=== PATIENT | male | born 1950 | race Caucasian/White ===

== ENCOUNTER → 2018-06-01 | Outpatient (CLI) | payer MEDICARE, OTHER ==
[2018-06-01 21:04] LABS: Cat Epith & Dander IgE <0.10 kU/L; Cockroach IgE <0.10 kU/L; Dog Dander IgE <0.10 kU/L
[2018-06-01 21:07] LABS: Alternaria alternata IgE <0.10 kU/L; Maple (Box Elder) IgE <0.10 kU/L
[2018-06-01 21:08] LABS: Birch IgE <0.10 kU/L; Oak IgE <0.10 kU/L
[2018-06-01 21:09] LABS: Elm IgE <0.10 kU/L; Ragweed,Common IgE <0.10 kU/L
[2018-06-01 21:10] LABS: Dermato. farinae IgE <0.10 kU/L; Red Top (Bentgrass) IgE <0.10 kU/L
[2018-06-01 21:14] LABS: Immunoglobulin E 5.69 IU/mL (0.00-114.00)
== END | disposition home or self-care (01) ==
LOC: LABWHC1 12:27
PROVIDERS: ATTEND Internal Medicine Critical Care Medicine
DX: J45.909 Unspecified asthma, uncomplicated (principal)
CPT/HCPCS: 36415; 82785; 86003

== ENCOUNTER → 2018-07-12 | Outpatient (CLI) | payer MEDICARE, OTHER ==
[2018-07-12 08:50] LABS: Blood Urea Nitrogen 20 mg/dL (9-20)
--- NOTE | 2018-07-12 10:01 | CT ---
EXAMINATION TYPE: CT chest w con DATE OF EXAM: 07/12/2018 COMPARISON: NONE HISTORY: Shortness of breath CT DLP: 490 mGycm. Automated Exposure Control for Dose Reduction was Utilized. TECHNIQUE: CT scan of the thorax is performed following with IV Contrast, patient injected with 100 ml mL of Isovue 300. FINDINGS: LUNGS: There is right apical 3 mm nodule axial image 8. There is calcified 3 to 4 mm subpleural right lower lobe nodule or granuloma axial image 38. There is focal nodular scarring right middle lobe gini r diaphragm axial image 47 of fat density presumed benign. There is minimal central left basilar line ar scarring or atelectasis just above diaphragm. No suspicious greater than 4 mm noncalcified nodules or masses. No suspicious focal consolidation. No pleural effusion or pneumothorax is seen. Mild emph ysematous change is present with mild central peribronchial wall thickening. No bronchiectasis. MEDIASTINUM: There are no greater than 1 cm hilar or mediastinal lymph nodes. No cardiomegaly or pe ricardial effusion is seen. There are suspected coronary stents versus moderate to severe 3 vessel c oronary artery calcification, correlate clinically. OTHER: Curvilinear calcification hepatic dome coronal image 46 is presumed benign. Mild multilevel sp urring in thoracic spine is present. IMPRESSION: Mild chronic emphysematous change without suspicious acute pulmonary process.
== END ==
LOC: RADCTMAIN 07:54
PROVIDERS: ATTEND Internal Medicine Critical Care Medicine
DX: J43.9 Emphysema, unspecified (principal)
CPT/HCPCS: 82565; 84520; 71260; 36415; Q9967

== ENCOUNTER → 2018-07-31 | Outpatient (CLI) | payer MEDICARE, OTHER ==
[2018-07-31 08:24] LABS: HCT 42.6 % (39.0-53.0); HGB 14.7 gm/dL (13.0-17.5); MCH 30.9 pg (25.0-35.0); MCHC 34.5 g/dL (31.0-37.0); MCV 89.7 fL (80.0-100.0); Mean Platelet Volume 6.6; Platelet Count 243 k/uL (150-450); RBC 4.75 m/uL (4.30-5.90); RDW 13.7 % (11.5-15.5); WBC 7.1 k/uL (3.8-10.6)
[2018-07-31 08:28] LABS: Anion Gap 5 mmol/L; Blood Urea Nitrogen 17 mg/dL (9-20); Carbon Dioxide 30 mmol/L (22-30); Chloride 107 mmol/L (98-107); Glucose 128 mg/dL (74-99); Potassium 4.3 mmol/L (3.5-5.1); Sodium 142 mmol/L (137-145)
== END | disposition home or self-care (01) ==
LOC: LABPAT 08:00
PROVIDERS: ATTEND Internal Medicine Cardiovascular Disease
DX: Z01.812 Encounter for preprocedural laboratory examination (principal); R07.2 Precordial pain
CPT/HCPCS: 80051; 82565; 82947; 84520; 85027

== ENCOUNTER 2018-08-02 06:11 | Day surgery (SDC) | payer MEDICARE, OTHER ==
[2018-07-31 08:41] VITALS: BMI 25.1
[2018-08-02] MEDS ORDERED: ASPIRIN 325 MG TAB PO STA (06:33)
[2018-08-02] MEDS ORDERED: NITROGLYCERIN SL TABS 0.4 MG TAB SUBLINGUAL PRN (06:33)
[2018-08-02] MEDS ORDERED: ALPRAZolam 0.25 MG TAB PO PRN (06:33)
[2018-08-02] MEDS ORDERED: ATORVASTATIN 80 MG TAB PO STA (06:33)
[2018-08-02] MEDS ORDERED: SODIUM CHLORIDE 0.9% 1,000 ML in EMPTY BAG 1 BAG IV ONE (06:33)
[2018-08-02] MEDS ORDERED: ALPRAZolam 0.5 MG TAB PO PRN (06:33)
[2018-08-02 07:18] LABS: Glucose,Whole Blood 127 mg/dL (75-99)
[2018-08-02] MEDS ORDERED: SODIUM CHLORIDE 0.9% 1,000 ML IV ONE (07:30)
[2018-08-02] MEDS ORDERED: fentaNYL (PF) 50 MCG/ML 2 ML AMP IV ONE (07:49)
[2018-08-02] MEDS ORDERED: MIDAZOLAM (PF) 2 MG/2 ML VIAL IV ONE (07:49)
[2018-08-02] MEDS ORDERED: LIDOCAINE 1% INJ 10MG/ML (20 ML MDV) SQ ONE (07:50)
[2018-08-02] MEDS ORDERED: BIVALIRUDIN BOLUS 250 MG/50 ML IV ONE (08:20)
[2018-08-02] MEDS ORDERED: BIVALIRUDIN 250 MG in SODIUM CHLORIDE 0.9% 50 ML IV ONE (08:21)
[2018-08-02] MEDS: NITROGLYCERIN 1000MCG/10ML SYRINGE INTRACORON ONE ×2 (08:26→08:52)
[2018-08-02] MEDS ORDERED: IOPAMIDOL-370 125ML BTL INJ ONE (08:31)
[2018-08-02] MEDS ORDERED: NITROGLYCERIN SL TABS 0.4 MG TAB SUBLINGUAL ONE (09:10)
[2018-08-02] MEDS ORDERED: CLOPIDOGREL 75 MG TAB PO ONE (09:10)
[2018-08-02] MEDS ORDERED: IOPAMIDOL-370 100ML BTL INJ ONE (09:11)
[2018-08-02] MEDS ORDERED: ZOLPIDEM 5 MG TAB PO PRN (09:12)
[2018-08-02] MEDS ORDERED: MAG HYDROX/AL HYDROX/SIMETH 30 ML CUP PO PRN (09:12)
[2018-08-02] MEDS ORDERED: ATROPINE SULFATE 0.1 MG/ML 10ML SYRINGE IV PRN (09:12)
[2018-08-02] MEDS ORDERED: RX INFO: IV CONTRAST WAS GIVEN 1 EACH MISC MISCELLANE PRN (09:12)
[2018-08-02] MEDS ORDERED: ALBUTEROL NEBULIZED 2.5 MG/3 ML INHALATION PRN (09:13)
[2018-08-02] MEDS ORDERED: SODIUM CHLORIDE 0.9% 1,000 ML IV SCH (09:15)
--- NOTE | 2018-08-02 09:43 | CC ---
CARDIAC CATHETERIZATION REPORT INDICATION: Unstable angina. PROCEDURE NOTE: After obtaining informed consent, left heart catheterization and coronary angiogram were performed via the right femoral artery using standard Marielle catheters. The patient tolerated the procedure well without any obvious immediate complications. A femoral angiogram was obtained. The patient received moderate conscious sedation. Total sedation time was 15 minutes. FINDINGS: 1. HEMODYNAMICS: Left ventricular end-diastolic pressure is 12 to 14 mm. There is no significant gradient across the aortic valve. 2. LEFT VENTRICULOGRAM: Left ventriculogram is not performed. 3. ANGIOGRAPHIC DATA: Left Main Coronary Artery: Left main coronary artery appears calcified but is free of significant stenosis. Divides into left anterior descending coronary artery and circumflex coronary artery. LAD shows a 70% stenosis in its midportion. Circumflex coronary artery gives off large caliber OM branches. The first of which appears calcified, shows a focal area of 90% stenosis. Right coronary artery is a large dominant vessel that was previously stented in the proximal part. The stent appears patent with mild in-stent restenosis. CONCLUSIONS: Three-vessel coronary artery disease as described above with a patent stent within the right coronary artery with noncritical in-stent restenosis. There is a critical lesion within the OM branch and mid LAD. PLAN: Patient will undergo angioplasty with stent placement of these 2 lesions. The on-call appraiser art, Dr. Still, had reviewed the angiogram. MMODL / IJN: [id number] /
--- NOTE | 2018-08-02 09:45 | LTR ---
August 02, 2018 Re: Liam Betty Dear Dr. Mann: I performed cardiac catheterization on Liam Hernández. A detailed catheterization report is enclosed with the letter. In brief, the cardiac catheterization shows critical lesions involving the OM branch and the mid LAD and he will undergo angioplasty and stent placement for the same. Thank you for sending me this patient. I will keep you informed of the progress. Sincerely, MD ANTONIO Solano / RICH: [id number] /
--- NOTE | 2018-08-02 09:45 | PTCA ---
PERCUTANEOUSTRANS CORORONARY ANGIOGRAPHY DATE OF SERVICE: 08/02/2018 PERFORMING PHYSICIAN: Chu Still MD PROCEDURE PERFORMED: 1. Successful stenting of the first obtuse marginal branch of left circumflex using 2.75 x 18 mm Xience drug-eluting stent with an excellent angiographic results and reduction of stenosis from 99% to 0%. 2. Successful stenting of the distal left anterior descending artery using 2.0 x 15 mm Adriel drug-eluting stent with an excellent angiographic results and reduction of stenosis from 80% to 0%. 3. Successful stenting of the mid left anterior descending artery using 2.75 x 23 mm Xience drug-eluting stent with an excellent angiographic result and reduction of stenosis from 90% to 0%. INDICATION: This is a 68-year-old gentleman who sees Dr. Amaya in the office as an outpatient with known history of coronary artery disease who was experiencing chest discomfort concerning for angina. He underwent a heart catheterization earlier today by Dr. Amaya and was found to have critical disease involving the left circumflex and severe disease involving the LAD in the mid and distal portion. APPROACH: Right common femoral artery. COMPLICATION: None. LEVEL OF SEDATION: Moderate with sedation length of 46 minutes. PROCEDURE DESCRIPTION: Please refer to the diagnostic heart catheterization that was performed by Dr. Amaya earlier today. Anticoagulation was initiated using Angiomax. Subsequently, I did engage the left main using XB 3.5 guide. A Whisper wire was used to cross the lesion in the first obtuse marginal branch of the circumflex. I did balloon angioplasty using 2.5 x 12 mm balloon. Subsequently I tried to advance 275 x 15 x 18 mm Xience drug-eluting stent but the stent will not make the turn to OM 1 from the left main. At that point, I tried to advance a GuideLiner, but I was unable to advance the GuideLiner outside the guide. At that point, I did double wire the left circumflex using a danny wire with a run-through wire. Subsequently, I attempted advancing the stent over the Whisper wire, but the stent will not go to the left circumflex, but I was able to get the stent to the left circumflex over the run-through wire. The stent was positioned under fluoroscopy guidance and deployed under 18 atmospheres for 20 seconds with postdilatation using 2.5 x 12 mm NC balloon which was inflated under 18 atmospheres for 20 seconds with the following angiogram showing good angiographic results. After that, I did direct my wire to the left anterior descending artery. After that, I did balloon angioplasty of both the distal and mid LAD using 2.5 x 15 mm balloon. At that point, I deployed distally 2 0 x 15 mm Adriel drug-eluting stent which was positioned under fluoroscopy guidance and deployed under 14 atmospheres for 20 seconds and in the midportion, I deployed 2.75 x 23 mm Xience drug-eluting stent where the stent was positioned again under fluoroscopy guidance and deployed under 14 atmospheres for 20 seconds. The following angiogram showed good angiographic results and the procedure was completed without any complication. POSTPROCEDURE MANAGEMENT: 1. Dual anti-platelet therapy. 2. Risk factors modifications. 3. Follow up with the patient. ANTONIO / RICH: [id number] /
[2018-08-02] MEDS ORDERED: ATORVASTATIN 40 MG TAB PO SCH (21:00)
[2018-08-02] MEDS ORDERED: GLUCOSAMINE SULFATE 3000 MG PO SCH (21:00)
[2018-08-02] MEDS ORDERED: METOPROLOL TARTRATE 25 MG TAB PO SCH (21:00)
[2018-08-02 21:23] LABS: Glucose,Whole Blood 139 mg/dL (75-99)
[2018-08-03 00:16] VITALS: RESP 17
[2018-08-03 05:50] LABS: Anion Gap 6 mmol/L; Blood Urea Nitrogen 13 mg/dL (9-20); Calcium 9.1 mg/dL (8.4-10.2); Carbon Dioxide 27 mmol/L (22-30); Chloride 106 mmol/L (98-107); Glucose 126 mg/dL (74-99); Potassium 4.5 mmol/L (3.5-5.1); Sodium 139 mmol/L (137-145)
[2018-08-03 05:51] LABS: Basophils % (A) 0 %; Eosinophils # (A) 0.1 k/uL (0-0.7); Eosinophils % (A) 1 %; HCT 41.8 % (39.0-53.0); HGB 14.1 gm/dL (13.0-17.5); Lymphocytes # (A) 2.7 k/uL (1.0-4.8); Lymphocytes % (A) 24 %; MCH 29.9 pg (25.0-35.0); MCHC 33.6 g/dL (31.0-37.0); MCV 88.9 fL (80.0-100.0); Mean Platelet Volume 7.2; Monocytes # (A) 0.6 k/uL (0-1.0); Monocytes % (A) 5 %; Neutrophils # (A) 7.4 k/uL (1.3-7.7); Neutrophils % (A) 67 %; Platelet Count 206 k/uL (150-450); RDW 14.4 % (11.5-15.5)
[2018-08-03 06:13] LABS: Glucose,Whole Blood 133 mg/dL (75-99)
[2018-08-03] MEDS ORDERED: PANTOPRAZOLE 40 MG TABLET PO SCH (07:30)
[2018-08-03] MEDS ORDERED: ESCITALOPRAM 20 MG TAB PO SCH (09:00)
[2018-08-03] MEDS ORDERED: MULTIVITAMINS, THERA 1 EACH TAB PO SCH (09:00)
[2018-08-03] MEDS ORDERED: CLOPIDOGREL 75 MG TAB PO SCH (09:00)
[2018-08-03] MEDS ORDERED: amLODIPine 10 MG TAB PO SCH (09:00)
[2018-08-03] MEDS ORDERED: ASPIRIN 325 MG TAB PO SCH (09:00)
[2018-08-03] MEDS ORDERED: CHOLECALCIFEROL 1,000 UNIT TAB PO SCH (09:00)
[2018-08-03] MEDS ORDERED: METOPROLOL TARTRATE 50 MG TAB PO SCH (09:00)
[2018-08-03] MEDS ORDERED: NON-FORMULARY DRUG (Fish Oil/Dha/Epa [Fish Oil 1,200 Mg Fish Oil] 1 EACH) PO SCH (09:00)
--- NOTE | 2018-08-03 10:00 | DS ---
DISCHARGE SUMMARY DATE OF ADMISSION: 08/02/2018. DATE OF DISCHARGE: 08/03/2018. PROCEDURES PERFORMED: 1. Left heart catheterization. 2. Coronary angioplasty with stent placement of LAD and OM branch. HOSPITAL COURSE: This is a 68-year-old gentleman who presented to us with symptoms of unstable angina and underwent cardiac catheterization that revealed significant obstructive disease involving [place] OM and LAD and he underwent angioplasty of the same. This morning he is doing well and is free of symptoms. An EKG shows sinus rhythm and is within normal limits. LABS: Show that his hemoglobin is 14.1, platelet count is 206. Potassium is 4.5, creatinine is 0.8. PHYSICAL EXAM: Heart rate is 50 beats per minute, blood pressure is 170/89, but all his blood pressures through yesterday have been normal. He did not get his medications yet. There is no jugular venous distention. Chest is clear to auscultation. Heart exam reveals first and second heart sounds. No gallop. Exam of extremities did not reveal any edema. Right groin is free of bleeding, bruit, hematoma. Foot pulses are intact. ASSESSMENT: Coronary artery disease, status post 2-vessel angioplasty. DISCHARGE FOLLOWUP: Patient will be followed up in my office in a week's time. DISCHARGE MEDICATIONS: 1. Plavix 75 mg daily. 2. Lipitor 40 mg daily. 3. Aspirin. 4. Amlodipine 10 mg daily. 5. Flomax. 6. Prilosec. 7. Lopressor 50 in the morning, 25 in the evening. 8. Metformin, which is currently on hold because of the angioplasty. MMODL / IJN: [id number] /
[2018-08-03 12:39] VITALS: BP 177/81; PULSE 58; TEMP 98.4
== END 2018-08-03 10:25 | disposition home or self-care (01) ==
LOC: CATHCVL 06:11 → 3SCARD 09:05 → CATHCVL 08-03 10:25
PROVIDERS: ATTEND Internal Medicine Cardiovascular Disease
DX: I25.110 Atherosclerotic heart disease of native coronary artery with unstable angina pectoris (principal); I25.84 Coronary atherosclerosis due to calcified coronary lesion; I10 Essential (primary) hypertension; T82.855A Stenosis of coronary artery stent, initial encounter; E11.9 Type 2 diabetes mellitus without complications; Z79.84 Long term (current) use of oral hypoglycemic drugs; E78.2 Mixed hyperlipidemia; Z79.02 Long term (current) use of antithrombotics/antiplatelets; Z79.82 Long term (current) use of aspirin; Z79.899 Other long term (current) drug therapy
CPT/HCPCS: 93458; 80048; 85025; C9600 ×2; C1760; C1769 ×3; C1887 ×2; C1725 ×3; C1894; C1874 ×2; J2001; J3010; J0583; Q9967 ×2; J2250

== ENCOUNTER → 2020-07-08 | Outpatient (CLI) | payer MEDICARE, OTHER ==
[2020-07-08 11:49] LABS: HCT 41.5 % (39.0-53.0); HGB 14.3 gm/dL (13.0-17.5); MCH 30.7 pg (25.0-35.0); MCHC 34.5 g/dL (31.0-37.0); MCV 88.8 fL (80.0-100.0); Mean Platelet Volume 7.3; Platelet Count 225 k/uL (150-450); RBC 4.67 m/uL (4.30-5.90); RDW 12.8 % (11.5-15.5); WBC 8.7 k/uL (3.8-10.6)
[2020-07-08 12:05] LABS: Potassium 4.9 mmol/L (3.5-5.1)
== END | disposition home or self-care (01) ==
LOC: LABPAT 10:24
PROVIDERS: ATTEND Internal Medicine Cardiovascular Disease
DX: Z01.818 Encounter for other preprocedural examination (principal); I20.0 Unstable angina
CPT/HCPCS: 80051; 82565; 84520; 85027

== ENCOUNTER 2020-07-10 05:57 | Day surgery (SDC) | payer MEDICARE, OTHER ==
[2020-07-08 13:27] VITALS: BMI 25.4
[2020-07-10] MEDS ORDERED: HEPARIN SODIUM,PORCINE 2,500 UNIT in SODIUM CHLORIDE 0.9% 250 ML IRRIGATION PRN (06:02)
[2020-07-10] MEDS ORDERED: ALPRAZolam 0.5 MG TAB PO PRN (06:02)
[2020-07-10] MEDS ORDERED: SODIUM CHLORIDE 0.9% 1,000 ML in EMPTY BAG 1 BAG IV ONE (06:02)
[2020-07-10] MEDS ORDERED: HEPARIN SODIUM,PORCINE 10,000 UNIT in SODIUM CHLORIDE 0.9% 1,000 ML IRRIGATION PRN (06:02)
[2020-07-10] MEDS ORDERED: ALPRAZolam 0.25 MG TAB PO PRN (06:02)
[2020-07-10] MEDS ORDERED: NITROGLYCERIN SL TABS 0.4 MG TAB SUBLINGUAL PRN (06:02)
[2020-07-10] MEDS ORDERED: ASPIRIN 325 MG TAB PO ONE (07:00)
[2020-07-10] MEDS ORDERED: ATORVASTATIN 80 MG TAB PO ONE (07:00)
[2020-07-10 07:10] VITALS: RESP 18; TEMP 97.1
[2020-07-10 07:14] LABS: Glucose,Whole Blood 126 mg/dL (75-99)
[2020-07-10] MEDS ORDERED: LIDOCAINE 1% INJ 10MG/ML (20 ML MDV) ONE (07:17)
[2020-07-10] MEDS ORDERED: fentaNYL (PF) 50 MCG/ML 2 ML AMP ONE (07:34)
[2020-07-10] MEDS ORDERED: fentaNYL (PF) 50 MCG/ML 2 ML AMP IV ONE (07:39)
[2020-07-10] MEDS: MIDAZOLAM 2 MG/2 ML VIAL IV ONE ×2 (07:39→07:44)
[2020-07-10] MEDS ORDERED: LIDOCAINE 1% INJ 10MG/ML (20 ML MDV) SQ ONE (07:41)
[2020-07-10] MEDS ORDERED: IOPAMIDOL-370 125ML BTL INJ ONE (08:16)
--- NOTE | 2020-07-10 10:01 | CC ---
CARDIAC CATHETERIZATION REPORT INDICATION: Unstable angina in a patient with known coronary artery disease, status post multiple prior angioplasties. PROCEDURE NOTE: After obtaining informed consent, left heart catheterization and coronary angiogram are performed via the right femoral artery using standard Marielle catheters. The patient tolerated the procedure well without any obvious immediate complications. Patient received moderate conscious sedation. Total sedation time was 24 minutes. It was difficult to engage the right coronary artery, a Jourdan catheter was tried. However, we were able to engage the right with regular Marielle catheter. FINDINGS: 1. HEMODYNAMICS: Left ventricular end-diastolic pressure is 16 mm. There is no significant gradient across the aortic valve. 2. LEFT VENTRICULOGRAM: Left ventriculogram is not performed. 3. ANGIOGRAPHIC DATA: Left Main Coronary Artery: Left main coronary artery is a normal-sized vessel and is free of stenosis. Divides into left anterior descending coronary artery and circumflex coronary artery. LAD was previously stented in the proximal portion and the stent appears patent with the very distal LAD tapering to a very small vessel which is diffusely diseased. There are homocollaterals. There are [id number] collaterals. Circumflex coronary artery is a nondominant vessel. The OM branch was previously stented and the stent appears patent, but just proximal to the stent there is a new stenosis which at its worst seems to be 70% stenosis. Right coronary artery is a large dominant vessel that was previously stented. The stent appears patent. There is a lesion in the ostial portion of the PDA, seems to be at 50% to 60% stenosis. CONCLUSIONS: Multivessel coronary artery disease as described above with a new significant obstructive lesion within the circumflex coronary artery and patent stents within the LAD, OM and right coronary artery. PLAN: I am going to review the angiographic data with Dr. Stlil the on-call hospice office coordinator and decide on whether to perform angioplasty in the circumflex or treat him with continued medical therapy. The patient is quite symptomatic and his symptoms are new onset. MMODL / IJN: [id number] /
[2020-07-10] MEDS ORDERED: RX INFO: IV CONTRAST WAS GIVEN 1 EACH MISC MISCELLANE PRN (10:57)
[2020-07-10] MEDS ORDERED: SODIUM CHLORIDE 0.9% 1,000 ML IV SCH (11:00)
[2020-07-10 12:53] VITALS: BP 116/59; PULSE 54
== END 2020-07-10 13:43 | disposition home or self-care (01) ==
LOC: CATHCVL 05:57
PROVIDERS: ATTEND Internal Medicine Cardiovascular Disease
DX: I25.110 Atherosclerotic heart disease of native coronary artery with unstable angina pectoris (principal); I10 Essential (primary) hypertension; Z95.5 Presence of coronary angioplasty implant and graft; E11.9 Type 2 diabetes mellitus without complications; E78.5 Hyperlipidemia, unspecified; Z79.84 Long term (current) use of oral hypoglycemic drugs; Z79.02 Long term (current) use of antithrombotics/antiplatelets; Z79.82 Long term (current) use of aspirin; Z79.899 Other long term (current) drug therapy
CPT/HCPCS: 93458; 87635; C1769 ×2; C1760; C1894; J2250; J2001; J3010; Q9967

== ENCOUNTER → 2021-01-08 | Outpatient (CLI) | payer MEDICARE, OTHER ==
--- NOTE | 2021-01-08 08:40 | US ---
EXAMINATION TYPE: US carotid duplex BILAT DATE OF EXAM: 01/08/2021 COMPARISON: NONE CLINICAL HISTORY: R09.89 bruit. CAD. HTN controlled with meds. Dizzy. EXAM MEASUREMENTS: RIGHT: Peak Systolic Velocity (PSV) cm/sec ----- Right CCA: 61.6 ----- Right ICA: 86.7 ----- Right ECA: 151.6 ICA/CCA ratio: 1.4 RIGHT: End Diastole cm/sec ----- Right CCA: 12.7 ----- Right ICA: 21.9 ----- Right ECA: 0.0 LEFT: Peak Systolic Velocity (PSV) cm/sec ----- Left CCA: 75.7 ----- Left ICA: 95.6 ----- Left ECA: 119.4 ICA/CCA ratio: 1.3 LEFT: End Diastole cm/sec ----- Left CCA: 10.9 ----- Left ICA: 30.9 ----- Left ECA: 0.0 VERTEBRALS (direction of flow): Right Vertebral: Antegrade Left Vertebral: Unable to detect flow Rhythm: Arrhythmia Plaque and wall thickening seen. No significant stenosis. Elevated right ECA velocity. Grayscale images show moderate peripheral plaque centered at right carotid bulb with proximal and dis lisette extension. Findings greater on the right versus left. IMPRESSION: Moderate atherosclerotic changes bilaterally. No hemodynamically significant stenosis. Left vertebral artery occluded or hypoplastic. Arrhythmia noted during real-time scanning. Correlat e clinically to determine further workup with possible Holter monitoring Criteria for Assigning % of Stenosis / Diameter reduction (Estimation based on the indirect measurements of the internal carotid artery velocities (ICA PSV). 1. Normal (no stenosis)=ICA PSV < 125 cm/s: ratio < 2.0: ICA EDV<40 cm/s. 2. Less than 50% stenosis=ICA PSV < 125 cm/s: ratio < 2.0: ICA EDV<40 cm/s. 3. 50 to 69% stenosis=ICA PSV of 125 to 230 cm/s: ration 2.0 ? 4.0: ICA EDV 40-100 cm/s. 4. Greater than 70% stenosis to near occlusion= ICA PSV > 230 cm/s: ratio > 4.0: ICA EDV > 100 cm/s. 5. Near occlusion= ICA PSV velocities may be low or undetectable: variable ratio and ICA EDV. 6. Total occlusion=unable to detect flow.
== END | disposition home or self-care (01) ==
LOC: RADUSWWP 08:04
PROVIDERS: ATTEND Family Medicine
DX: M79.629 Pain in unspecified upper arm (principal); R09.89 Other specified symptoms and signs involving the circulatory and respiratory systems; R60.0 Localized edema; M79.669 Pain in unspecified lower leg; R20.2 Paresthesia of skin
CPT/HCPCS: 93880

== ENCOUNTER → 2021-01-13 | Outpatient (CLI) | payer MEDICARE, OTHER ==
--- NOTE | 2021-01-16 03:11 | MR ---
EXAMINATION TYPE: MR brain and iac wo/w con DATE OF EXAM: 01/13/2021 COMPARISON: None HISTORY: Dizziness, Hearing loss. 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 CONTRAST: Standard multiplanar, multisequence MRI departmental protocol utilizing 7.5 mL intravenous Gadavist g adolinium contrast. There is cerebral atrophy. There is no mass effect nor midline shift. There is no sign of intracrania l hemorrhage. There is large area of increased signal on the T2 images in the inferior posterior left cerebellar hemisphere related to an old infarct. Unchanged. On the T2 and FLAIR images there are scattered white matter high signal foci that measure up to 5 mm in both cerebral hemispheres. Total number is approximately 15. These are more noticeable in the left parietal lobe. The brainstem is intact. Corpus callosum appears intact. Sella turcica appears normal . There is no evidence of orbital mass. Diffusion images show no sign of an acute infarct. There is 7 x 4 mm area of enhancement within the right internal auditory canal. This could be acousti c neuroma. There is no significant expansion of the internal auditory canal. This appears not signifi cantly different than old exam. IMPRESSION: There is enhancing mass within the right internal auditory canal consistent with acoustic neuroma whi ch is not changed in size and enhancement pattern compared to old exam. 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 Scattered white matter high signal foci also present on old exam and not a significant progression of disease.
== END | disposition home or self-care (01) ==
LOC: RADMRIMAIN 15:08
PROVIDERS: ATTEND Family Medicine
DX: R42 Dizziness and giddiness (principal)
CPT/HCPCS: 70553; A9585

== ENCOUNTER 2022-11-15 06:03 | Day surgery (SDC) | payer MEDICARE, OTHER ==
[~2022-11-15 06:03] MED LIST: ALPRAZolam 0.25 MG TAB PO PRN; ALPRAZolam 0.5 MG TAB PO PRN; HEPARIN SODIUM,PORCINE (1 ML) 2,500 UNIT in SODIUM CHLORIDE 0.9% 250 ML IRRIGATION PRN; HEPARIN SODIUM,PORCINE 10,000 UNIT in SODIUM CHLORIDE 0.9% 1,000 ML IRRIGATION PRN; NITROGLYCERIN SL TABS 0.4 MG TAB SUBLINGUAL PRN
[2022-11-15] MEDS ORDERED: ASPIRIN 81 MG ONE (06:13)
[2022-11-15] MEDS: SODIUM CHLORIDE 0.9% 1,000 ML in EMPTY BAG 1 BAG IV SCH ×2 (06:31→20:36)
[2022-11-15 06:42] LABS: Glucose,Whole Blood 133 mg/dL (70-110)
[2022-11-15] MEDS ORDERED: ATORVASTATIN 80 MG TAB PO ONE (07:00)
[2022-11-15] MEDS ORDERED: ASPIRIN 325 MG TAB PO ONE (07:00)
[2022-11-15] MEDS ORDERED: VERAPAMIL 2.5 MG/ML 2 ML AMP ONE (07:22)
[2022-11-15] MEDS ORDERED: LIDOCAINE 1% INJ 10MG/ML (20 ML MDV) ONE (07:22)
[2022-11-15] MEDS ORDERED: HEPARIN SODIUM 1,000 UN/ML (10ML VL) ONE (07:25)
[2022-11-15] MEDS ORDERED: fentaNYL (PF) 50 MCG/ML 2 ML AMP ONE (07:25)
[2022-11-15] MEDS ORDERED: MIDAZOLAM 2 MG/2 ML VIAL IVP ONE (07:30)
[2022-11-15] MEDS ORDERED: fentaNYL (PF) 50 MCG/ML 2 ML AMP IVP ONE (07:30)
[2022-11-15] MEDS ORDERED: LIDOCAINE 1% INJ 10MG/ML (20 ML MDV) SQ ONE (07:31)
[2022-11-15] MEDS ORDERED: HEPARIN SODIUM 1,000 UN/ML (10ML VL) IVP ONE ×2 (07:57→08:31)
[2022-11-15] MEDS ORDERED: IOPAMIDOL-370 100ML BTL INJ ONE ×2 (08:17→08:45)
[2022-11-15] MEDS ORDERED: CLOPIDOGREL 75 MG TAB ONE (08:26)
[2022-11-15] MEDS ORDERED: CLOPIDOGREL 75 MG TAB PO ONE (08:29)
--- NOTE | 2022-11-15 08:31 | CC ---
CARDIAC CATHETERIZATION REPORT INDICATION: Unstable angina in a patient with known coronary artery disease with multivessel angioplasty. PROCEDURE NOTE: After obtaining informed consent, left heart catheterization and coronary angiogram were performed via the right femoral artery using standard Marielle catheters. The patient tolerated the procedure well without any obvious immediate complications, received moderate conscious sedation. Total sedation time was 28 minutes. I initially attempted right radial artery access, I could not. Right radial pulse is somewhat feeble. FINDINGS: HEMODYNAMICS: 1. Left ventricular end-diastolic pressure is 24 mm. There is no significant gradient across the aortic valve. 2. Left ventriculogram: Left ventriculogram is not performed. ANGIOGRAPHIC DATA: Right coronary artery is a large dominant vessel. There is a stent that extends from proximal to mid RCA that appears patent. Distal RCA has bifurcation to PDA and PLV. There is a focal 95% stenosis. The PDA also has 80% to 90% stenosis. The lesion in the distal right is new. Left main coronary artery is a normal-sized vessel and is free of stenosis, appears calcified, but it is free of stenosis. Divides into left anterior descending coronary artery and circumflex coronary artery. Circumflex coronary artery shows a focal 95% stenosis just before it bifurcates into AV groove circ and a large OM branch. Previously the OM branch was stented and appears patent. LAD was previously stented in its midportion and the stent appears patent. CONCLUSIONS: Three-vessel coronary artery disease as described above with focal obstructive disease involving distal mid RCA and proximal circumflex coronary artery. PLAN: The patient will undergo angioplasty of both the right and the circumflex coronary artery. MMODL / IJN: [id number] /
[2022-11-15] MEDS ORDERED: MAG HYDROX/AL HYDROX/SIMETH 30 ML CUP ONE (08:50)
[2022-11-15] MEDS ORDERED: ALBUTEROL NEBULIZED 2.5 MG/3 ML INHALATION PRN (08:51)
[2022-11-15] MEDS ORDERED: RX INFO: IV CONTRAST WAS GIVEN 1 EACH MISC MISCELLANE PRN (08:52)
[2022-11-15] MEDS ORDERED: ATROPINE SULFATE 0.1 MG/ML 10ML SYRINGE IV PRN (08:52)
[2022-11-15] MEDS ORDERED: MAG HYDROX/AL HYDROX/SIMETH 30 ML CUP PO PRN (08:52)
[2022-11-15] MEDS ORDERED: NITROGLYCERIN SL TABS 0.4 MG TAB SUBLINGUAL PRN (08:52)
[2022-11-15] MEDS ORDERED: ZOLPIDEM 5 MG TAB PO PRN (08:52)
--- NOTE | 2022-11-15 08:56 | P.PCN ---
Date of Procedure: 11/15/22 Operative Findings: PERCUTANEOUS CORONARY INTERVENTION Performing physician Chu Still M.D. Procedure Performed: 1. Successful stenting of the distal RCA using 3.25 x 18 mm Xience drug-eluting stent with an excellent angiographic results. 2. Successful stending of the proximal LCx using 3.0 x 8 mm Xience drug-eluting stent with an excellent angiographic result. 3. Adjunctive use of and the vascular imaging 4. Selective right common femoral artery angiogram Indication: Chest discomfort in this 72-year-old gentleman who is known to have CAD was prior stenting of the RCA underwent a stress test and that showed an ischemia. He underwent a heart catheterization by Dr. Amaya and was found to have critical 2 vessel CAD Approach: Right common femoral artery Complications: None Level of Sedation: Moderate with a sedation length of 77 minutes Procedure Discussion: After obtaining an informed consent the patient was brought to the cardiac labor/excavator. Please refer to diagnosed sick heart catheterization was performed ear lier. Anticoagulation was initiated using heparin. Continuous ACT monitoring was performed. Subsequently I did engage the RCA using JR4 guiding catheter in the RCA was wired using a run-through wire. And O ultrasound was performed and showed a diameter of the RCA on 3.5 mm. Predilatation was performed using 2.5 mm balloon before I deployed distally 3.25 x 18 mm stent and subsequently postdilated the stent using 3.5 mm noncompliant balloon. The proximal stent in the RCA was also dilated using 3.5 mm noncompliant balloon. Final angiogram showed excellent angiographic results. Subsequently I did engage the left main using CLS 3.5 guiding catheter. The left circumflex was wired using a run- through wire. After that predilatation was performed using 2.5 mm balloon and O ultrasound was performed and showed them is around 3 mm. I deployed 3.0 x 8 mm stent. Final angiogram showed excellent angiographic results and the procedure was completed was no complication Postprocedure Management: 1. Dual antiplatelet therapy using aspirin and Plavix for at least 6 month 2. Aggressive cholesterol control 3. Risk factors modification
[2022-11-15] MEDS ORDERED: SODIUM CHLORIDE 0.9% 1,000 ML in EMPTY BAG 1 BAG IV SCH (09:00)
[2022-11-15] MEDS ORDERED: CLOPIDOGREL 75 MG TAB PO SCH (09:00)
[2022-11-15 14:31] VITALS: BMI 23.4
[2022-11-15] MEDS: SYMBICORT 80-4.5 MCG INHALER INHALATION SCH (20:25)
[2022-11-15] MEDS: CHOLECALCIFEROL 25 MCG (1000 IU) TABLET PO SCH (20:34)
[2022-11-15] MEDS: TAMSULOSIN 0.4 MG CAP.ER.24H PO SCH (20:35)
[2022-11-15] MEDS: METOPROLOL TARTRATE 25 MG TAB PO SCH (20:35)
[2022-11-15] MEDS ORDERED: ASPIRIN 81 MG PO SCH (21:00)
[2022-11-15] MEDS ORDERED: ATORVASTATIN 40 MG TAB PO SCH (21:00)
[2022-11-15] MEDS ORDERED: NON FORMULARY DRUG (Glucosamine Sulfate 500 MG Cap) PO SCH (21:00)
[2022-11-16] MEDS: SODIUM CHLORIDE 0.9% 1,000 ML in EMPTY BAG 1 BAG IV SCH (06:39)
[2022-11-16 06:54] LABS: African American GFR (CKD) >90 (>60 ml/min/1.73 sqM); Non-African American GFR(CKD) 78 (>60 ml/min/1.73 sqM)
[2022-11-16] MEDS ORDERED: PANTOPRAZOLE 40 MG TABLET PO SCH (07:30)
[2022-11-16] MEDS: SYMBICORT 80-4.5 MCG INHALER INHALATION SCH (08:47)
[2022-11-16] MEDS ORDERED: amLODIPine 10 MG TAB PO SCH (09:00)
[2022-11-16] MEDS ORDERED: MULTIVITAMINS, THERA 1 EACH TAB PO SCH (09:00)
[2022-11-16] MEDS ORDERED: CLOPIDOGREL 75 MG TAB PO SCH (09:00)
[2022-11-16] MEDS ORDERED: VITAMIN E (DL,TOCOPHERYL ACET) 400 UNIT (180 MG) CAP PO SCH (09:00)
[2022-11-16] MEDS ORDERED: ISOSORBIDE MONONITRATE ER 30 MG TAB.ER.24H PO SCH (09:00)
[2022-11-16] MEDS ORDERED: VENLAFAXINE HCL 37.5 MG TAB PO SCH (09:00)
[2022-11-16] MEDS: METOPROLOL TARTRATE 25 MG TAB PO SCH (09:11)
[2022-11-16] MEDS: TAMSULOSIN 0.4 MG CAP.ER.24H PO SCH (09:11)
[2022-11-16] MEDS: CHOLECALCIFEROL 25 MCG (1000 IU) TABLET PO SCH (09:11)
[2022-11-16 09:40] VITALS: BP 155/77; PULSE 70; RESP 16; TEMP 98.4
--- NOTE | 2022-11-16 13:39 | DS ---
DISCHARGE SUMMARY PROCEDURES PERFORMED: 1. Left heart catheterization. 2. Angioplasty with stent placement in the right coronary artery and circumflex coronary artery with excellent angiographic results. CONDITION AT THE TIME OF DISCHARGE: The patient is free of cardiac symptoms, hemodynamically stable. PHYSICAL EXAMINATION: VITAL SIGNS: Stable. CHEST: Reveals good air entry bilaterally. HEART: Reveals first and second heart sounds. No gallop. ABDOMEN: Soft. EXTREMITIES: Did not reveal any edema. Right radial artery access site is free of bleeding, bruit, or hematoma. DIAGNOSTIC STUDIES: EKG shows sinus rhythm without any acute ST-T wave changes. LABORATORY DATA: Today show that the creatinine is 0.96. DISCHARGE MEDICATIONS: Include: 1. Amlodipine 10 mg daily. 2. Flomax. 3. Metoprolol 25 b.i.d. 4. Clopidogrel 75 daily. 5. Lipitor 40 daily. 6. Effexor. 7. Glucophage that is to be started after 24 hours. 8. Aspirin. 9. Imdur. 10.Albuterol. FOLLOWUP: He will be followed up in my office in a week's time. MMODL / IJN: [id number] /
== END 2022-11-16 12:05 | disposition home or self-care (01) ==
LOC: CATHCVL 06:03 → 6NMEDSUR 09:04 → CATHCVL 11-16 12:05
PROVIDERS: ATTEND Internal Medicine Cardiovascular Disease
DX: I25.10 Atherosclerotic heart disease of native coronary artery without angina pectoris (principal); I10 Essential (primary) hypertension; E78.5 Hyperlipidemia, unspecified; E11.9 Type 2 diabetes mellitus without complications; Z79.82 Long term (current) use of aspirin; Z79.899 Other long term (current) drug therapy
CPT/HCPCS: 94640 ×2; 92978; 93458; 82565; C9600; C1760; C1887 ×2; C1769 ×3; C1894 ×2; C1725 ×3; C1753; C1874 ×2; J2250; J2001; J3010; J1644; Q9967

== ENCOUNTER → 2023-01-26 | Outpatient (CLI) | payer MEDICARE, OTHER ==
--- NOTE | 2023-01-26 12:47 | US ---
EXAMINATION TYPE: US carotid duplex BILAT DATE OF EXAM: 01/26/2023 COMPARISON: Carotid ultrasound 01/08/2021 CLINICAL INDICATION: Male, 72 years old with history of R42 LIGHTHEADEDNESS; Dizziness TECHNIQUE: Carotid duplex ultrasound examination. Indirect Doppler criteria was utilized. FINDINGS: EXAM MEASUREMENTS: RIGHT: Peak Systolic Velocity (PSV) cm/sec ----- Right CCA: 68.3 ----- Right ICA: 109 ----- Right ECA: 167 ICA/CCA ratio: 1.60 RIGHT: End Diastole cm/sec ----- Right CCA: 11.3 ----- Right ICA: 22.7 ----- Right ECA: 0.0 LEFT: Peak Systolic Velocity (PSV) cm/sec ----- Left CCA: 82.8 ----- Left ICA: 95.2 ----- Left ECA: 228 ICA/CCA ratio: 1.15 LEFT: End Diastole cm/sec ----- Left CCA: 16.1 ----- Left ICA: 25.6 ----- Left ECA: 0.0 VERTEBRALS (direction of flow): Right Vertebral: Antegrade Left Vertebral: unable to visualize Rhythm: Normal TELEVISION ENGINEERING TEACHER NOTES: Moderate plaque bilateral bifurcations. Increased velocities bilateral ECA's IMPRESSION: 1. Moderate calcified plaque within both carotid bifurcations without ultrasound evidence for hemody namically significant stenosis of the bilateral internal carotid arteries. 2. Left vertebral artery is again not visualized which may be due to occlusion or hypoplasia. This c an be further evaluated with CTA neck as clinically indicated. Criteria for Assigning % of Stenosis / Diameter reduction (Estimation based on the indirect measurements of the internal carotid artery velocities (ICA PSV). 1. Normal (no stenosis)=ICA PSV < 125 cm/s: ratio < 2.0: ICA EDV<40 cm/s. 2. Less than 50% stenosis=ICA PSV < 125 cm/s: ratio < 2.0: ICA EDV<40 cm/s. 3. 50 to 69% stenosis=ICA PSV of 125 to 230 cm/s: ration 2.0 ? 4.0: ICA EDV 40-100 cm/s. 4. Greater than 70% stenosis to near occlusion= ICA PSV > 230 cm/s: ratio > 4.0: ICA EDV > 100 cm/s. 5. Near occlusion= ICA PSV velocities may be low or undetectable: variable ratio and ICA EDV. 6. Total occlusion=unable to detect flow.
== END | disposition home or self-care (01) ==
LOC: RADUSWWP 10:57
PROVIDERS: ATTEND Family Medicine
DX: I65.23 Occlusion and stenosis of bilateral carotid arteries (principal); R42 Dizziness and giddiness; Z86.73 Personal history of transient ischemic attack (TIA), and cerebral infarction without residual deficits
CPT/HCPCS: 93880

== ENCOUNTER → 2023-02-07 | Outpatient (CLI) | payer MEDICARE, OTHER ==
[2023-02-07 14:14] LABS: African American GFR (CKD) 75 (>60 ml/min/1.73 sqM); Blood Urea Nitrogen 18 mg/dL (9-20); Non-African American GFR(CKD) 65 (>60 ml/min/1.73 sqM)
--- NOTE | 2023-02-07 14:52 | CT ---
EXAMINATION TYPE: CT angio neck CT DLP: 397 mGycm, Automated exposure control for dose reduction was used. DATE OF EXAM: 02/07/2023 2:42 PM COMPARISON: Carotid ultrasound 01/26/2023. CLINICAL INDICATION:Male, 73 years old with history of G45.1,I65.23; [facility], TECHNIQUE: Axially acquired helical CT angiogram of the neck was obtained with contrast utilizing 100 mL of Isovue-370 administered intravenously. Axial images are supplemented with 3D reconstructions w hich were post-processed at an independent workstation. NASCET criteria used. FINDINGS: CTA NECK: Right Carotid System: The common carotid artery and external carotid artery are patent. There is moderate atherosclerotic p laque at the carotid bifurcation with less than 50% stenosis of the origin of the internal carotid ar dami. . The carotid bifurcation demonstrates no evidence of hemodynamically significant stenosis. The remaining portions of the internal carotid artery demonstrate normal size without significant narrow ing. Left Carotid System: The common carotid artery and external carotid artery are patent. There is moderate atherosclerotic p laque at the carotid bifurcation with less than 50% stenosis of the origin of the internal carotid ar dami. The remaining portions of the internal carotid artery demonstrate normal size without significa nt narrowing. The right vertebral artery is patent. The visualized left vertebral artery is hypoplastic. There is p atency of the mid and superior portion with nonvisualization of the distal portion. There is a bovine aortic arch. The origins of the great vessels are patent. No evidence of hemodynami mackenzie significant stenosis. Moderate mucosal thickening of the right maxillary sinus. Mild mucosal thickening of the right anteri or ethmoid sinus. Bilateral aphakia. IMPRESSION: 1. No evidence of dissection of the cervical internal carotid arteries. Less than 50% stenosis of the origin of the bilateral internal carotid arteries secondary to calcified plaque. 2. Left vertebral artery is hypoplastic with the distal and mid portions visualized. The proximal por tion is not visualized and may be significantly hypoplastic or occluded.
== END | disposition home or self-care (01) ==
LOC: RADCTMAIN 12:58
PROVIDERS: ATTEND Family Medicine
DX: I65.23 Occlusion and stenosis of bilateral carotid arteries (principal)
CPT/HCPCS: 82565; 84520; 70498; Q9967

== ENCOUNTER → 2023-04-26 | Outpatient (CLI) | payer OTHER ==
--- NOTE | 2023-04-26 12:44 | BD ---
EXAMINATION TYPE: Axial Bone Density DATE OF EXAM: 04/26/2023 CLINICAL HISTORY: 73 years old Male. ICD-10 CODE: Z13.820 SCREENING FOR OSTEOPOROSIS Height: 68 Weight: 172 FRAX RISK QUESTIONS: Family History (Parent hip fracture): no History of Fracture in Adulthood: no Secondary Osteoporosis: no RISK FACTORS HISTORY OF: Surgery to Spine/Hip(right/left)/Wrist (right/left): no MEDICATIONS: Thyroid Medications: yes Which medication: synthroid How Lon month EXAM MEASUREMENTS: Bone mineral densitometry was performed using the [employer]. Bone mineral density as measured about the Lumbar spine is: ----- L1-L4(G/cm2): 1.278 T Score Values are as follows: ----- L1: -1.0 ----- L2: 1.7 ----- L3: 1.7 ----- L4: 0.6 ----- L1-L4: 0.8 Z Score Values are as follows: ----- L1: -0.6 ----- L2: 2.0 ----- L3: 2.0 ----- L4: 0.9 ----- L1-L4: 1.1 Bone mineral density baseline Bone mineral density about the R hip (g/cm2): 1.021 Bone mineral density about the L hip (g/cm2): 1.012 T Score values are as follows: -----R Neck: -0.9 -----L Neck: -1.0 -----R Total: 0.1 -----L Total: 0.0 Z Score values are as follows: -----R Neck: 0.2 -----L Neck: 0.1 -----R Total: 0.3 -----L Total: 0.3 Bone mineral density baseline FRAX%s: The graph provided illustrates a 6.5% chance for a major osteoporotic fx and a 1.8% chance fo r the hips probability for fx in 10 years time. IMPRESSION: Normal (Values between +1 and -1 indicate normal bone mass). Consider repeating this study in 5 year s or sooner if there is some new clinical indication. NOTE: T-SCORE=SD OF THE YOUNG ADULT MEAN.
== END | disposition home or self-care (01) ==
LOC: RADBDWWP 11:54
PROVIDERS: ATTEND Family Medicine
DX: Z13.820 Encounter for screening for osteoporosis (principal)
CPT/HCPCS: 77080

== ENCOUNTER 2024-06-02 14:22 | Emergency (ER) | payer MEDICARE, OTHER ==
[2024-06-02 14:27] VITALS: PULSE 114; RESP 16; TEMP 98.2
--- NOTE | 2024-06-02 14:58 | ED ---
General Adult HPI - General Chief complaint: Back Pain/Injury Stated complaint: abd pain Time Seen by Provider: 06/02/24 14:38 Source: patient, RN notes reviewed Mode of arrival: ambulatory Limitations: no limitations - History of Present Illness Initial comments: This is a 74-year-old male with history of DM, AMI and CVA presenting with constant low back pain (01/04) x 5 days. Patient describes pain as sharp radiating to bilateral groin with associated hematuria. Patient endorses going to urgent care yesterday with blood noted in urine and was prescribed Flomax for suspected nephrolithiasis. Patient endorses chronic history of urinary continen ce following TURP procedure. Denies fever, chills, saddle paresthesia, abdominal pain, N/V/D. Onset/Timin -: days(s) Location: back Radiation: other (groin) Severity scale (1-10): 10 Quality: sharp Consistency: constant Worsens with: movement - Related Data Home Medications Medication Instructions Recorded Confirmed Aspirin [Adult Low Dose Aspirin EC] 81 mg PO HS 07/31/18 11/15/22 Atorvastatin [Lipitor] 40 mg PO HS 07/31/18 11/15/22 Cholecalciferol (Vitamin D3) 1,800 unit PO BID 07/31/18 11/15/22 [Vitamin D3] amLODIPine BESYLATE 10 mg PO QAM 07/31/18 11/15/22 metFORMIN HCL [Glucophage] 1,000 mg PO BID 07/31/18 11/15/22 Advair (Unknown Dose) 2 puff INHALATION BID 07/08/20 11/15/22 Albuterol Inhaler [Ventolin Hfa 1 puff INHALATION DIRECTED PRN 07/08/20 11/11/22 Inhaler] Clopidogrel Bisulfate [Clopidogrel] 75 mg PO QAM 11/11/22 11/15/22 Glucosamine Sulfate 1,500 mg PO HS 11/11/22 11/15/22 Isosorbide Mononitrate [Isosorbide 30 mg PO QAM 11/11/22 11/15/22 Mononitrate ER] Metoprolol Tartrate 25 mg PO BID 11/11/22 11/15/22 Multivitamins, Thera [Multivitamin 1 tab PO QAM 11/11/22 11/15/22 (formulary)] Omeprazole 40 mg PO QAM 11/11/22 11/15/22 Tamsulosin HCl [Flomax] 0.4 mg PO BID 11/11/22 11/15/22 Venlafaxine HCl [Effexor] 37.5 mg PO QAM 11/11/22 11/15/22 Vitamin E (Unknown Dose) 1 tab PO QAM 11/11/22 11/15/22 Previous Rx's Medication Instructions Recorded Cephalexin [Keflex] 500 mg PO Q6HR 1 Days #40 cap 06/02/24 Allergies Allergy/AdvReac Type Severity Reaction Status Date / Time No Known Allergies Allergy Verified 06/02/24 14:26 Review of Systems ROS Statement: Those systems with pertinent positive or pertinent negative responses have been documented in the HPI. ROS Other: All systems not noted in ROS Statement are negative. Past Medical History Past Medical History: Asthma, Coronary Artery Disease (CAD), Chest Pain / Angina, CVA/TIA, Diabetes Mellitus, Hearing Disorder / Deafness, Hyperlipidemia, Hypertension, Myocardial Infarction ([place]), Osteoarthritis (OA), Prostate Disorder Additional Past Medical History / Comment(s): Hx stroke 2000 with continued weakness on right side of face, hx [place] X2, hx agent orange, difficulty urinating and frequent urination at night. 100% hearing loss in right ear, 80% hearing loss in left ear, bilateral hearing aids. Last Myocardial Infarction Date:: 2007 History of Any Multi-Drug Resistant Organisms: None Reported Past Surgical History: Ear Surgery, Heart Catheterization, Heart Catheterization With Stent, Orthopedic Surgery, Tonsillectomy Additional Past Surgical History / Comment(s): 6 cardiac stents, acoustic neuroma right ear, bilateral thumb surgery, left shoulder rotator cuff repair, left knee arthroscopy. Past Anesthesia/Blood Transfusion Reactions: No Reported Reaction Date of Last Stent Placement:: 2007 Past Psychological History: Anxiety Smoking Status: Never smoker Past Alcohol Use History: Rare Past Drug Use History: None Reported - Past Family History Mother Family Medical History: Cancer Father Family Medical History: Cancer Brother(s) Family Medical History: Cancer General Exam Limitations: no limitations General appearance: alert, in no apparent distress Head exam: Present: atraumatic, normocephalic, normal inspection Eye exam: Present: normal appearance, PERRL, EOMI. Absent: scleral icterus, conjunctival injection, periorbital swelling ENT exam: Present: normal exam, mucous membranes moist Neck exam: Present: normal inspection. Absent: tenderness, meningismus, lymp hadenopathy Respiratory exam: Present: normal lung sounds bilaterally. Absent: respiratory distress, wheezes, rales, rhonchi, stridor Cardiovascular Exam: Present: regular rate, normal rhythm, normal heart sounds. Absent: systolic murmur, diastolic murmur, rubs, gallop, clicks GI/Abdominal exam: Present: soft, normal bowel sounds. Absent: distended, tenderness, guarding, rebound, rigid Extremities exam: Present: normal inspection, full ROM, normal capillary refill. Absent: tenderness, pedal edema, joint swelling, calf tenderness Back exam: Present: muscle spasm (Positive diffuse paraspinal muscle spasm and tenderness), paraspinal tenderness. Absent: CVA tenderness (R), CVA tenderness (L), vertebral tenderness Neurological exam: Present: alert, oriented X3, CN II-XII intact Psychiatric exam: Present: normal affect, normal mood Skin exam: Present: warm, dry, intact, normal color. Absent: rash Course Vital Signs 06/02/24 06/02/24 14:24 17:00 Temperature 98.2 F Pulse Rate 114 H Respiratory 16 Rate Blood Pressure 166/77 167/82 O2 Sat by Pulse 99 Oximetry Medical Decision Making - Medical Decision Making Was pt. sent in by a medical professional or institution (MARTI Reynaga, SALES REPRESENTATIVE [employer], urgent care, hospital, or halfway...) When possible be specific @ -No Did you speak to anyone other than the patient for history (EMS, parent, family, police, friend...)? What history was obtained from this source @ -No Did you review nursing and triage notes (agree or disagree)? Why? @ -I reviewed and agree with nursing and triage notes Were old charts reviewed (outside hosp., previous admission, EMS record, old EKG, old radiological studies, urgent care reports/EKG's, halfway records)? Report findings @ -No old charts were reviewed Differential Diagnosis (chest pain, altered mental status, abdominal pain women, abdominal pain men, vaginal bleeding, weakness, fever, dyspnea, syncope, headache, dizziness, GI bleed, back pain, seizure, CVA, palpatations, mental health, musculoskeletal)? @ -Differential Back Pain: Strain, zoster, cauda equina syndrome, epidural abscess, vertebral osteomyelitis, discitis, fracture, subluxation, disc herniation, DJD, spinal stenosis, dissection, AAA, pancreatitis, peptic ulcer disease, pyelonephritis, kidney stone, this is not meant to be an all-inclusive list. EKG interpreted by me (3pts min.). @ -Not done X-rays interpreted by me (1pt min.). @ -None done CT interpreted by me (1pt min.). @ -Abdomen/pelvic CT shows urinary bladder wall thickening suggesting cystitis possible mild gallbladder wall thickening without cholelithiasis as well as colonic diverticulosis. U/S interpreted by me (1pt. min.). @ -None done What testing was considered but not performed or refused? (CT, X-rays, U/S, lab s)? Why? @ -None What meds were considered but not given or refused? Why? @ -None Did you discuss the management of the patient with other professionals (professionals i.e. DrPortia, PA, SALES REPRESENT[employer]IVE [employer], lab, RT, psych nurse, social worker delinquency prevention, stock drier tender, teacher, finance officer, lining caser)? Give summary @ -No Was smoking cessation discussed for >3mins.? @ -No Was critical care preformed (if so, how long)? @ -No Were there social determinants of health that impacted care today? How? (Homelessness, low income, unemployed, alcoholism, drug addiction, transportation, low edu. Level, literacy, decrease access to med. care, [place] [facility], rehab)? @ -No Was there de-escalation of care discussed even if they declined (Discuss DNR or withdrawal of care, Hospice)? DNR status @ -No What co-morbidities impacted this encounter? (DM, HTN, Smoking, COPD, CAD, Cancer, CVA, ARF, Chemo, Hep., AIDS, mental health diagnosis, sleep apnea, morbid obesity)? @ -None Was patient admitted / discharged? Hospital course, mention meds given and route, prescriptions, significant lab abnormalities, going to OR and other pertinent info. @ -Lab work shows mild leukocytosis 11.4 with left shift as well as dehydration, hyperglycemia 139 and some kidney dysfunction. UA shows UTI small amount of blood and proteinuria. Abdomen/pelvic CT shows urinary bladder wall thickening suggesting cystitis possible mild gallbladder wall thickening without cholelithiasis as well as colonic diverticulosis. Negative right upper quadrant tenderness, Moe sign. Patient initially given IV normal saline, Toradol and Dilaudid as well as p.o. Tylenol. IV Rocephin and p.o. Keflex provided for UTI. Keflex sent to patient's pharmacy. Advised follow-up with PCP/urology and increase water/cranberry juice intake. Discussed patient with Dr. Tang. Undiagnosed new problem with uncertain prognosis? @ -No Drug Therapy requiring intensive monitoring for toxicity (Heparin, Nitro, Insulin, Cardizem)? @ -No Were any procedures done? @ -No Diagnosis/symptom? @ -Urinary tract infection Acute, or Chronic, or Acute on Chronic? @ -Acute Uncomplicated (without systemic symptoms) or Complicated (systemic symptoms)? @ -Uncomplicated Side effects of treatment? @ -No Exacerbation, Progression, or Severe Exacerbation? @ -No Poses a threat to life or bodily function? How? (Chest pain, [place], [place], pneumonia, PE, COPD, DKA, ARF, appy, cholecystitis, CVA, Diverticulitis, Homicidal, Suicidal, threat to staff... and all critical care pts) @ -No - Lab Data Result diagrams: 06/02/24 15:00 06/02/24 15:00 Lab Results 06/02/24 06/02/24 06/02/24 Range/Units 14:39 15:00 15:00 WBC 11.4 H (3.8-10.6) k/uL RBC 4.48 (4.30-5.90) m/uL Hgb 13.6 (13.0-17.5) gm/dL Hct 40.5 (39.0-53.0) % MCV 90.4 (80.0-100.0) fL MCH 30.3 (25.0-35.0) pg MCHC 33.5 (31.0-37.0) g/dL RDW 13.2 (11.5-15.5) % Plt Count 299 (150-450) k/uL MPV 7.9 Neutrophils % 74 % Lymphocytes % 16 % Monocytes % 7 % Eosinophils % 1 % Basophils % 0 % Neutrophils # 8.4 H (1.3-7.7) k/uL Lymphocytes # 1.9 (1.0-4.8) k/uL Monocytes # 0.8 (0-1.0) k/uL Eosinophils # 0.1 (0-0.7) k/uL Basophils # 0.0 (0-0.2) k/uL Sodium 133 L (137-145) mmol/L Potassium 4.6 (3.5-5.1) mmol/L Chloride 99 (98-107) mmol/L Carbon Dioxide 22 (22-30) mmol/L Anion Gap 12 mmol/L BUN 25 H (9-20) mg/dL Creatinine 1.27 H (0.66-1.25) mg/dL Est GFR (CKD-EPI)AfAm 63 (>60 ml/min/1.73 sqM) Est GFR (CKD-EPI)NonAf 55 (>60 ml/min/1.73 sqM) Glucose 139 H (74-99) mg/dL Calcium 9.0 (8.4-10.2) mg/dL Total Bilirubin 1.0 (0.2-1.3) mg/dL AST 28 (17-59) U/L ALT 15 (4-49) U/L Alkaline Phosphatase 72 (38-126) U/L Total Protein 6.3 (6.3-8.2) g/dL Albumin 3.5 (3.5-5.0) g/dL Urine Color Yellow Urine Appearance Turbid (Clear) Urine pH 6.0 (5.0-8.0) Ur Specific [place] 1.021 (1.001-1.035) Urine Protein 2+ H (Negative) Urine Glucose (UA) Negative (Negative) Urine Ketones Negative (Negative) Urine Blood Small H (Negative) Urine Nitrite Negative (Negative) Urine Bilirubin Negative (Negative) Urine Urobilinogen 2.0 (<2.0) mg/dL Ur Leukocyte Esterase Large H (Negative) Urine RBC 25 H (0-5) /hpf Urine WBC >182 H (0-5) /hpf Urine WBC Clumps Many H (None) /hpf Ur Squamous Epith Cells 5 H (0-4) /hpf Urine Mucus Few H (None) /hpf Disposition Clinical Impression: UTI (urinary tract infection) Disposition: HOME SELF-CARE Condition: Good Instructions (If sedation given, give patient instructions): Urinary Tract Infection in Men (ED) Additional Instructions: Increase water and cranberry juice intake. Follow-up with PCP/urology Prescriptions: Cephalexin [Keflex] 500 mg PO Q6HR 1 Days #40 cap Is patient prescribed a controlled substance at d/c from ED?: No Referrals: Owen Mann DO [Primary Care Provider] - 1-2 days Cresencio Mccrary MD [STAFF PHYSICIAN] - 1-2 days Time of Disposition: 16:19
[2024-06-02] MEDS: ACETAMINOPHEN TAB 500 MG TAB PO STA (15:05)
[2024-06-02] MEDS: SODIUM CHLORIDE 0.9% 1,000 ML IV STA (15:06)
[2024-06-02] MEDS: KETOROLAC 15 MG/ML 1 ML VIAL IVP STA (15:06)
[2024-06-02] MEDS: HYDROmorphone 0.5 MG/0.5 ML SYRINGE IVP STA (15:06)
[2024-06-02 15:17] LABS: Basophils % (A) 0 %; Eosinophils # (A) 0.1 k/uL (0-0.7); Eosinophils % (A) 1 %; HCT 40.5 % (39.0-53.0); HGB 13.6 gm/dL (13.0-17.5); Lymphocytes # (A) 1.9 k/uL (1.0-4.8); Lymphocytes % (A) 16 %; MCH 30.3 pg (25.0-35.0); MCHC 33.5 g/dL (31.0-37.0); MCV 90.4 fL (80.0-100.0); Mean Platelet Volume 7.9; Monocytes # (A) 0.8 k/uL (0-1.0); Monocytes % (A) 7 %; Neutrophils # (A) 8.4 k/uL (1.3-7.7); Neutrophils % (A) 74 %; Platelet Count 299 k/uL (150-450); RBC 4.48 m/uL (4.30-5.90); RDW 13.2 % (11.5-15.5); WBC 11.4 k/uL (3.8-10.6)
[2024-06-02 15:20] LABS: ALT 15 U/L (4-49); AST 28 U/L (17-59); African American GFR (CKD) 63 (>60 ml/min/1.73 sqM); Albumin 3.5 g/dL (3.5-5.0); Alkaline Phosphatase 72 U/L (38-126); Anion Gap 12 mmol/L; Blood Urea Nitrogen 25 mg/dL (9-20); Carbon Dioxide 22 mmol/L (22-30); Chloride 99 mmol/L (98-107); Glucose 139 mg/dL (74-99); Non-African American GFR(CKD) 55 (>60 ml/min/1.73 sqM); Potassium 4.6 mmol/L (3.5-5.1); Sodium 133 mmol/L (137-145); Total Protein 6.3 g/dL (6.3-8.2)
--- NOTE | 2024-06-02 15:29 | CT ---
EXAMINATION TYPE: CT abdomen pelvis wo con DATE OF EXAM: 06/02/2024 3:16 PM COMPARISON: None. CLINICAL INDICATION: Male, 74 years old with history of Back pain radiating to groin; Back pain radia ting to groin TECHNIQUE: Axial CT abdomen pelvis wo con;Sagittal and coronal reformats were created on a separate workstation. Oral contrast used: without Oral Contrast (none if empty) CT DLP: 489.2 mGycm, Automated exposure control for dose reduction was used. FINDINGS: LOWER CHEST: Unremarkable ABDOMEN LIVER: Unremarkable GALLBLADDER AND BILE DUCTS: Mild wall thickening and possible trace adjacent pericholecystic fluid. PANCREAS: Unremarkable. SPLEEN: Unremarkable. ADRENAL GLANDS: Unremarkable. KIDNEYS AND URETERS: No evidence of hydronephrosis or renal calculus. The ureters are unremarkable. PELVIS BLADDER: Circumferential urinary bladder wall thickening and multiple diverticula. REPRODUCTIVE: Unremarkable. ABDOMEN & PELVIS STOMACH AND BOWEL: Stomach and duodenum are unremarkable. Scattered diverticula are noted throughout the colon. No evidence of bowel obstruction. PERITONEUM/RETROPERITONEUM: No evidence of pneumoperitoneum or free fluid. VASCULATURE: No evidence of aortic aneurysm. MUSCULOSKELETAL: No acute osseous abnormalities LYMPH NODES: No gross evidence for lymphadenopathy. SOFT TISSUE/ABDOMINAL WALL: Unremarkable IMPRESSION: 1. Circumferential urinary bladder wall thickening and multiple bladder diverticula suggestive of cy stitis. Recommend clinical correlation with urinalysis. 2. Questionable mild gallbladder wall thickening/edema and possible treatment pericholecystic fluid. No CT evidence of cholelithiasis. Consider right upper quadrant ultrasound if there is underlying cl inical concern for acute cholecystitis. Colonic diverticulosis. 3. Additional nonacute findings as above. [facility], , 06/02/2024 3:27 PM
[2024-06-02 15:54] LABS: Appearance,Urine Turbid (Clear); Bilirubin,Urine Negative (Negative); Blood,Urine Small (Negative); Color,Urine Yellow; Glucose,Urine (UA) Negative (Negative); Ketones,Urine Negative (Negative); Leukocyte Esterase,Urine Large (Negative); Mucus,Urine Few /hpf; Nitrite,Urine Negative (Negative); Protein,Urine 2+ (Negative); RBC,Urine 25 /hpf (0-5); Specific Gravity,Urine 1.021 (1.001-1.035); Squamous Epithelial Cell,Urine 5 /hpf (0-4); WBC,Urine >182 /hpf (0-5)
[2024-06-02] MEDS: cefTRIAXone IN SWFI 1,000 MG/10 ML SYRINGE IVP STA (16:51)
[2024-06-02] MEDS: CEPHALEXIN 500 MG CAP PO STA (16:51)
[2024-06-02 17:01] VITALS: BP 167/82
== END 2024-06-02 17:00 | disposition home or self-care (01) ==
LOC: EC 14:22
DX: N39.0 Urinary tract infection, site not specified (principal)
CPT/HCPCS: 36415; 80053; 85025; 81001; 87086; 74176; 99284; 96374; 96375; 96361; J0696; J1885; J1171